=== PATIENT | male | born 1945 | race Caucasian/White ===

== ENCOUNTER 2020-02-05 13:24 | Emergency (ER) | payer OTHER, MEDICARE ==
--- OUTSIDE RECORDS SUMMARY | 2020-02-05 13:25 | XMS REPORT | Continuity of Care Document ---
:1945 Author Organization [facility] t Address [address] [place] [address] Care Team Providers Name Role Phone JULIO C Attending Clinician Unavailable JULIO C Admitting Clinician Unavailable Payers Payer Name Policy Type Policy Number Effective Date Expiration Date S ource Problems This patient has no known problems. Allergies, Adverse Reactions, Alerts Allergy Allergy Status Severity Reaction(s) Onset Inactive Treating Comm ents Source Name Type Date Date Clinician No Known DA Active [facility] 02-05 [place] [facility] No Known DA Active [facility] 12-20 [place] [facility] Medications This patient has no known medications. Procedures This patient has no known procedures. Encounters Start End Encounter Admission Attending Care Care Encounter Source Date/Time Date/Time Type Type Clinicians Facility Department ID 2019-03-23 2019-07-02 Outpatient Crissy BUNCH [facility] 1000 [id number] [place] 15:24:00 23:59:00 [facility] 2017-01-09 2017-04-13 Outpatient Crissy BUNCH [facility] [id number] [place] 13:22:00 23:59:00 AISHA [facility] Results This patient has no known results.
[2020-02-05 14:02] LABS: Absolute Lymphocytes (CBC) 0.5 K/uL (0.7-4.9); Basophils % 0.4 % (0-1.3); Hematocrit 42.7 % (39.6-49.0); Lymphocytes % 4.6 % (15.3-44.8); MPV 8.2 fL (7.6-11.3); RBC Red Blood Cell Count 4.51 M/uL (4.33-5.43)
--- NOTE | 2020-02-05 14:11 | RAD REPORT ---
EXAM DESCRIPTION: CT - Stone Protocol - 02/05/2020 1:57 pm CLINICAL HISTORY: Abdominal pain. Right flank pain COMPARISON: None. TECHNIQUE: Computed axial tomography of the abdomen pelvis was obtained without oral or IV contrast. Lack of IV and oral contrast limits evaluation of solid organs, bowel, and vessels. Coronal reformat nelson images were obtained and reviewed. All CT scans are performed using dose optimization technique as appropriate and may include automated exposure control or mA/KV adjustment according to patient size. FINDINGS: Several small right renal calculi. Mild to moderate right hydronephrosis with perirenal st randing. Right ureter is dilated. 4 millimeter calculus distal right ureter Hounsfield unit 960 Left renal calculus is not present. No hydronephrosis. 3 centimeter right renal cyst. Smaller left re nal cyst. Gastric distention. The liver, spleen, pancreas and adrenals appear grossly normal There is no evidence of diverticulitis. The appendix appears normal Small to moderate bilateral inguinal hernias contain fat IMPRESSION: A 4 millimeter calculus distal right ureter with [id number] right hydronephrosis Gastric distention
[2020-02-05] MEDS ORDERED: ONDANSETRON 4 MG/2 ML VIAL ONE (14:14)
[2020-02-05 14:16] LABS: Potassium 3.9 mmol/L (3.5-5.1)
[2020-02-05 14:32] LABS: Blood Morphology Comment NOT SEEN (NOT SEEN); Platelet Estimate ADEQ; Urine White Blood Cell Casts OK
--- NOTE | 2020-02-05 14:41 | ER ---
Nurse's Notes [facility] Name: Arvind Jean Age: 74 yrs Sex: Male : 1945 Arrival Date: 02/05/2020 Time: 13:25 Bed 23 Private MD: Jennifer Bain A Diagnosis: 4 mm right mid ureter kidney stone with mild right hyroureter and hydronephrosis Presentation: 02/04 13:30 Chief complaint: Patient states: R flank pain and nausea that began at 0600 this morning. Pt has a hx of kidney stones and believes this may be another. Coronavirus screen: Patient denies a cough. Patient denies shortness of breath or difficulty breathing. Patient denies measured and/or subjective temperature greater than 100.4F prior to today's visit. Patient denies travel on a cruise ship or to a country the [facility] currently lists as an affected area. Patient denies contact with known and/or suspected case of COVID-19. Ebola Screen: Patient denies exposure to infectious person. Patient denies travel to an Ebola-affected area in the 21 days before illness onset. Initial Sepsis Screen: Does the patient meet any 2 criteria? No. Patient's initial sepsis screen is negative. Does the patient have a suspected source of infection? No. Patient's initial sepsis screen is negative. Risk Assessment: Do you want to hurt yourself or someone else? Patient reports no desire to harm self or others. Onset of symptoms was February 05, 2020. 13:30 Method Of Arrival: Ambulatory ss 13:30 Acuity: LANA 3 Triage Assessment: 15:09 General: Appears in no apparent distress. comfortable, Behavior is calm, cooperative. ls4 Pain: Complains of pain in right low back. GI: No deficits noted. No signs and/or symptoms were reported involving the gastrointestinal system. : Reports pain in right flank(s). Derm: No deficits noted. No signs and/or symptoms reported regarding the dermatologic system. Historical: - Allergies: 13:33 No Known Allergies; ss - Immunization history:: Adult Immunizations up to date. - Social history:: Smoking status: Patient denies any tobacco usage or history of. Assessment: 13:57 Reassessment: Pt to CT now. Vital Signs: 13:30 BP 147 / 84; Pulse 64; Resp 16; Temp 98.0(TE); Pulse Ox 97% on R/A; Weight 88.9 kg; ss Height 5 ft. 8 in. (172.72 cm); Pain 6/10; 15:10 BP 138 / 74; Pulse 62; Resp 16; Temp 98.0; Pulse Ox 98% on R/A; Pain 5/10; ls4 13:30 Body Mass Index 29.80 (88.90 kg, 172.72 cm) ss ED Course: 13:25 Patient arrived in ED. as 13:25 Jennifer Bain MD is Private Physician. as 13:32 Triage completed. ss 13:33 Arm band placed on right wrist. ss 13:50 Emeka Falcon MD is Attending Physician. kdr 13:50 Suzy Gao, RN is Primary Nurse. ls4 13:56 Inserted saline lock: 20 gauge in right antecubital area, using aseptic technique. ss Blood collected. 13:58 CT Stone Protocol In Process Unspecified. EDMS 14:36 Jennifer Bain MD is Referral Physician. kdr Administered Medications: 14:09 Drug: Zofran (Ondansetron) 4 mg Route: IVP; Site: right antecubital; ls4 Outcome: 14:40 Discharge ordered by . kdr 15:10 Discharged to home ambulatory. ls4 15:10 Condition: good 15:10 Discharge instructions given to patient, family, Instructed on discharge instructions, follow up and referral plans. medication usage, Demonstrated understanding of instructions, follow-up care, medications, Prescriptions given X 4. 15:32 Patient left the ED. ls4 Signatures: Dispatcher [employer] EDMS Emeka Falcon MD MD kdr Soledad Victor Shelby RN RN Suzy Gao RN RN ls4
--- NOTE | 2020-02-05 14:41 | EDPHYS ---
Physician Documentation [facility] Name: Arvind Jean Age: 74 yrs Sex: Male : 1945 Arrival Date: 02/05/2020 Time: 13:25 Bed 23 Private MD: Jennifer Bain, A ED Physician Emeka Falcon HPI: 02/04 15:40 This 74 yrs old Male presents to ER via Ambulatory with complaints of kdr Possible Kidney Stone. 15:40 The patient complains of pain in the right low back. The pain does not radiate. Onset: kdr The symptoms/episode began/occurred this morning. Modifying factors: The symptoms are alleviated by nothing. the symptoms are aggravated by nothing. Associated signs and symptoms: Pertinent positives: nausea, vomiting, Pertinent negatives: dysuria, fever, headache, pain radiating to the lower extremities. Severity of pain: At its worst the pain was mild moderate just prior to arrival, in the emergency department the pain has improved mildly. The patient has experienced a previous episode. The patient has not recently seen a physician. Historical: - Allergies: 13:33 No Known Allergies; ss - Immunization history:: Adult Immunizations up to date. - Social history:: Smoking status: Patient denies any tobacco usage or history of. ROS: 15:40 Constitutional: Negative for fever, chills, and weight loss, Eyes: Negative for injury, kdr pain, redness, and discharge, Neck: Negative for injury, pain, and swelling, Cardiovascular: Negative for chest pain, palpitations, and edema, Respiratory: Negative for shortness of breath, cough, wheezing, and pleuritic chest pain, Abdomen/GI: Negative for abdominal pain, nausea, vomiting, diarrhea, and constipation, : Negative for injury, bleeding, discharge, and swelling, MS/Extremity: Negative for injury and deformity, Skin: Negative for injury, rash, and discoloration, Neuro: Negative for headache, weakness, numbness, tingling, and seizure activity. Psych: Negative for depression, anxiety, suicide ideation, homicidal ideation, and hallucinations, Allergy/Immunology: Negative for hives, rash, and allergies, Endocrine: Negative for neck swelling, polydipsia, polyuria, polyphagia, and marked weight changes, Hematologic/Lymphatic: Negative for swollen nodes, abnormal bleeding, and unusual bruising. 15:40 Back: Positive for pain at rest, flank pain, on the right. Exam: 15:40 Constitutional: This is a well developed, well nourished patient who is awake, alert, kdr and in no acute distress. Head/Face: Normocephalic, atraumatic. Eyes: Pupils equal round and reactive to light, extra-ocular motions intact. Lids and lashes normal. Conjunctiva and sclera are non-icteric and not injected. Cornea within normal limits. Periorbital areas with no swelling, redness, or edema. Neck: Trachea midline, no thyromegaly or masses palpated, and no cervical lymphadenopathy. Supple, full range of motion without nuchal rigidity, or vertebral point tenderness. No Meningismus. Chest/axilla: Normal chest wall appearance and motion. Nontender with no deformity. No lesions are appreciated. Cardiovascular: Regular rate and rhythm with a normal S1 and S2. No gallops, murmurs, or rubs. Normal PMI, no JVD. No pulse deficits. Respiratory: Lungs have equal breath sounds bilaterally, clear to auscultation and percussion. No rales, rhonchi or wheezes noted. No increased work of breathing, no retractions or nasal flaring. Abdomen/GI: Soft, non-tender, with normal bowel sounds. No distension or tympany. No guarding or rebound. No evidence of tenderness throughout. Skin: Warm, dry with normal turgor. Normal color with no rashes, no lesions, and no evidence of cellulitis. MS/ Extremity: Pulses equal, no cyanosis. Neurovascular intact. Full, normal range of motion. Neuro: Awake and alert, GCS 15, oriented to person, place, time, and situation. Cranial nerves II-XII grossly intact. Motor strength 5/5 in all extremities. Sensory grossly intact. Cerebellar exam normal. Normal gait. Psych: Awake, alert, with orientation to person, place and time. Behavior, mood, and affect are within normal limits. 15:40 Back: pain, that is mild, of the right mid back. Vital Signs: 13:30 BP 147 / 84; Pulse 64; Resp 16; Temp 98.0(TE); Pulse Ox 97% on R/A; Weight 88.9 kg; ss Height 5 ft. 8 in. (172.72 cm); Pain 6/10; 15:10 BP 138 / 74; Pulse 62; Resp 16; Temp 98.0; Pulse Ox 98% on R/A; Pain 5/10; ls4 13:30 Body Mass Index 29.80 (88.90 kg, 172.72 cm) ss MDM: 14:40 Patient medically screened. kdr 15:40 Data reviewed: vital signs, nurses notes, lab test result(s), radiologic studies. kdr Counseling: I had a detailed discussion with the patient and/or guardian regarding: the historical points, exam findings, and any diagnostic results supporting the discharge/admit diagnosis, lab results, radiology results, the need for outpatient follow up. 02/04 13:45 Order name: CBC with Diff; Complete Time: 14:35 hb 02/04 13:45 Order name: Basic Metabolic Panel; Complete Time: 14:35 hb 02/04 13:45 Order name: CT Stone Protocol; Complete Time: 14:35 hb 02/04 13:45 Order name: Urine Dipstick-Ancillary (obtain specimen); Complete Time: 13:56 hb 02/04 14:27 Order name: CBC Smear Scan; Complete Time: 14:35 EDMS Administered Medications: 14:09 Drug: Zofran (Ondansetron) 4 mg Route: IVP; Site: right antecubital; ls4 Disposition: 02/05/20 14:40 Discharged to Home. Impression: 4 mm right mid ureter kidney stone with mild right hyroureter and hydronephrosis. - Condition is Stable. - Discharge Instructions: Kidney Stones, [id number]. - Prescriptions for Tylenol- Codeine #3 300-30 mg Oral Tablet - take 2 tablets by ORAL route every 6 hours As needed; 12 tablet. Zofran 4 mg Oral Tablet - take 1 tablet by ORAL route every 12 hours As needed; 20 tablet. Flomax 0.4 mg Oral Capsule, Sust. Release 24 hr - take 1 capsule by ORAL route once daily 1/2 hour following the same meal each day; 10 capsule. Bactrim DS 800- 160 mg Oral Tablet - take 1 tablet by ORAL route every 12 hours for 3 days; 6 tablet. - Medication Reconciliation Form, Thank You Letter, Antibiotic Education, Prescription Opioid Use form. - Follow up: Jennifer Bain MD; When: 2 - 3 days; Reason: If symptoms return, Further diagnostic work-up, Recheck today's complaints, Continuance of care, Re-evaluation by your physician. - Problem is new. - Symptoms have improved. Signatures: Dispatcher [employer] Emeka Turner MD MD kdr Leah Barba RN RN ss Mahogany Caraballo RN RN Suzy Gao RN RN ls4 Corrections: (The following items were deleted from the chart) 15:32 14:40 02/05/2020 14:40 Discharged to Home. Impression: 4 mm right mid ureter kidney ls4 stone with mild right hyroureter and hydronephrosis. Condition is Stable. Forms are Medication Reconciliation Form, Thank You Letter, Antibiotic Education, Prescription Opioid Use. Follow up: Jennifer Bain; When: 2 - 3 days; Reason: If symptoms return, Further diagnostic work-up, Recheck today's complaints, Continuance of care, Re-evaluation by your physician. Problem is new. Symptoms have improved. kdr
[2020-02-05 15:37] VITALS: TEMP 98
[2020-02-05 15:39] VITALS: BP 138/74; O2SAT 98
== END 2020-02-05 15:32 | disposition home or self-care (01) ==
LOC: ER 13:24
DX: N13.2 Hydronephrosis with renal and ureteral calculous obstruction (principal); N13.4 Hydroureter
CPT/HCPCS: 85025; 80048; 36415; 76377; 74176; 96374; 99284; J2405

== ENCOUNTER 2021-11-29 07:07 | Day surgery (SDC) | payer OTHER, MEDICARE ==
--- NOTE | 2021-11-27 10:42 | RAD REPORT ---
EXAM DESCRIPTION: Yvette Pineda (2 Views)11/27/2021 10:35 am CLINICAL HISTORY: Preop for hernia repair COMPARISON: None FINDINGS: The lungs appear clear of acute infiltrate. The heart is normal size IMPRESSION: No acute abnormalities displayed
[2021-11-27 11:00] LABS: Absolute Lymphocytes (CBC) 1.1 K/uL (0.7-4.9); Hematocrit 40.4 % (39.6-49.0); Lymphocytes % 16.7 % (15.3-44.8); MPV 7.7 fL (7.6-11.3); RBC Red Blood Cell Count 4.31 M/uL (4.33-5.43)
[2021-11-27 11:16] LABS: Potassium 3.9 mmol/L (3.5-5.1)
--- NOTE | 2021-11-27 13:44 | EKG ---
Test Date: 2021-11-27 Test Time: 09:11:13 Public Address System Operator: MINA MEASUREMENT RESULTS: Intervals: Rate: 67 CT: 178 QRSD: 88 QT: 400 QTc: 422 Hendricks: P: 45 CT: 178 QRS: 44 T: 39 INTERPRETIVE STATEMENTS: Normal sinus rhythm Nonspecific ST abnormality Abnormal ECG Compared to ECG 01/11/2009 15:24:14 ST (T wave) deviation now present Sinus bradycardia no longer present Electronically Signed On 11-27-21 13:44:06 CDT by Carlos Sellers
[2021-11-29] MEDS ORDERED: NA CHLORIDE 0.9% 0 ML ONE (07:15)
[2021-11-29] MEDS ORDERED: Ringers Lactate 1,000 ML IV ONE ×2 (07:15→10:12)
[2021-11-29] MEDS ORDERED: FENTANYL CITR 100 MCG/2 ML ONE (08:08)
[2021-11-29] MEDS ORDERED: MIDAZOLAM HCL 2 MG/2 ML INJ ONE (08:08)
[2021-11-29] MEDS ORDERED: LIDOCAINE 2% MPF 5 ML VIAL ONE (08:08)
[2021-11-29] MEDS ORDERED: propofoL 200 MG/20 ML VIAL IV ONE (08:08)
[2021-11-29] MEDS ORDERED: ONDANSETRON 4 MG/2 ML VIAL ONE ×2 (08:13→09:38)
[2021-11-29] MEDS ORDERED: ACETAMINOPHEN 500 MG TAB ONE (08:29)
[2021-11-29] MEDS ORDERED: CELECOXIB 100 MG CAPSULE ONE (08:30)
[2021-11-29] MEDS ORDERED: ROCURONIUM 50 MG/5 ML VIAL IV ONE (09:09)
[2021-11-29] MEDS: CEFAZOLIN SODIUM 1 GM/VIAL ONE ×2 (09:10→09:20)
[2021-11-29] MEDS ORDERED: GLYCOPYRROLATE 0.2 MG/ML SYR ONE ×2 (09:10→09:13)
[2021-11-29] MEDS ORDERED: NEOSTIGMINE 1 MG/ML -10 ML VIAL ONE (09:11)
[2021-11-29] MEDS ORDERED: KETOROLAC 30 MG/ML INJ ONE ×2 (09:37→09:38)
[2021-11-29] MEDS ORDERED: Phenylephrine HCl 10 MG/ML 1 ML VIAL ONE (09:43)
[2021-11-29] MEDS ORDERED: EPHEDRINE SULF 50 MG/ML VIAL ONE (10:01)
[2021-11-29] MEDS ORDERED: dexAMETHasone 10 MG/ML VIAL ONE (10:25)
--- NOTE | 2021-11-29 10:42 | P.BOP ---
Preoperative diagnosis: bilateral tender large reducible inguinal hernias Postoperative diagnosis: same Primary procedure: 1. Open repair tender large reducible Right inguinal hernia with mesh Secondary procedure: 2. Open repair tender large reducible Left inguinal hernia with mesh Trolley Coach Driver: NOEL BANGURA (STORE LEAD) Estimated blood loss: <10cc Specimen: none Findings: large direct hernias Anesthesia: General Complications: None Transferred to: Recovery Room Condition: Good
[2021-11-29 14:02] VITALS: BP 136/72; TEMP 96.3; O2SAT 96
--- NOTE | 2021-11-30 | DS ---
Date of Discharge: 11/29/2021 Diagnosis: Bilateral tender, large, reducible inguinal hernias. Procedure: Open repair of right and left inguinal hernias with mesh. Disposition: Home. Activity: As tolerated. No heavy lifting. Discharge Instructions: Follow up in my office, call for appointment at [phone]. Keep area dry for 48 hours, then may shower. Cold compress to bilateral inguinal regions for 24 hours. The patient a lready had prescription called. He has occasional retention of urine, so we are going to recommend h im Flomax at least perioperative and then follow up his urologist. JESSICA/SUZANNE Voice ID: [id number] Report ID: [id number]
--- NOTE | 2021-11-30 00:18 | OP ---
Date of Procedure: 11/29/2021 Surgeon: Babar Victor MD Roof Service Technician: Shaunna Witt Preoperative Diagnosis: Bilateral tender, large, reducible inguinal hernias. Postoperative Diagnosis: Bilateral tender, large, reducible inguinal hernias. Procedures: 1.Open repair of tender, large, reducible right inguinal hernia with mesh. 2.Open repair of tender, large, reducible left inguinal hernia with mesh. Estimated Blood Loss: Less than 10 mL. Specimen: None. Findings: Two large direct hernias. Anesthesia: General plus local. Indications: This is a case of a male who comes to us with 2 large hernias in inguinal region, justin g him pain and discomfort. He wants them repaired. The patient was explained the benefits, alternati ves, and risks of open repair of right and left inguinal hernias with mesh which included, but not li mited to, infection, bleeding, damage to adjacent structures, anesthesia complication, recurrence, ch ronic pain, chronic numbness, PR, and even . He also understands this may not relieve any sympt oms. He might need more than one surgical intervention. He also understands we most likely will be using mesh in that area. Pros and cons of mesh placement were discussed with the patient. All the q uestions were answered to his satisfaction, and he did allow use of mesh. He has elected [facility] as surgery center of choice. Procedure In Detail: The patient was brought to the operating room, placed in supine position. Anes thesia was done without complication. Inguinal and abdomen were prepped and draped in sterile fashio n. We started with the left side first, which is apparently the biggest of the two, today. An incis ion was made on the inguinal regions, carried down to Dipti fascia until we found external oblique a poneurosis, that was opened in direction of the fiber and connected to the superficial inguinal ring. The ilioinguinal nerve and iliohypogastric nerve were identified and protected behind external obli que aponeurosis. Yue was placed around the spermatic cord and when we dissected that area, we no nelson that the patient had a large direct hernia. We have to reconstruct the floor of the canal. The way we did that was just putting #1 Prolene in the pubic tubercle, shelving edge of inguinal ligament , and transversalis fascia around that making sure the nerves were not included. Once repaired the f clover of the canal, we put a mesh plug in the deep inguinal ring, secured that with a VersaTack. Once again, the spermatic cord structures were protected and identified at all times. After that, I plac ed a mesh sheet on the floor of the canal, securing that to the pubic tubercle, shelving edge of ingu inal ligament, transversalis fascia, and the tails looped around the spermatic cord without strangula tion. The area was irrigated. No bleeding. At that moment, I proceeded to bring the ilioinguinal n erve and iliohypogastric nerve back into the inguinal canal, reconstructed the superficial inguinal r ing and closed the external oblique aponeurosis with Prolene stitches. The area was irrigated. Once again, nerves were protected and placed into proper place during the case. The Dipti fascia was cl osed with 3-0 chromic and skin with armani. Sponge count and instrument counts were correct. The p atient tolerated procedure well. At that moment, we went then to have instrument count correct and t hen we went to the opposite side, the right side. The incision was made in the inguinal and skin inc ision was carried down to Dipti fascia, opened the external oblique aponeurosis in the direction of the fibers to connect the superficial inguinal ring. At that moment, I proceeded to identify the ner ve, ilioinguinal and iliohypogastric, protected to be kept behind external oblique aponeurosis. Penr ose was placed around the spermatic cord. We had a mirror-image hernia of the opposite side, it is a direct hernia and will have to reconstruct the floor of the canal. We did that by using #1 Prolene, securing that to the pubic tubercle, shelving edge of inguinal ligament, transversalis fascia around that until we had the floor reconstructed. We made sure the nerves were protected. A mesh plug was placed in the deep inguinal ring, secured in place with VersaTack. The spermatic cord structures we re protected at all times, identified, . We placed a mesh sheet on the floor of the canal, securing that to the pubic tubercle, shelving edge of inguinal ligament, transversalis fascia and th e tails looped around the spermatic cord without strangulation as we did in the opposite side. The i lioinguinal nerve and iliohypogastric nerve were identified once again, put inside the canal like we did on the opposite side, and then reconstructed the superficial inguinal ring and closed the externa l oblique aponeurosis as we did on the other side with the nerve already in the canal and making sure we do not catch them. The area was irrigated. Dipti fascia was closed with 3-0 chromic and the sk in closed with armani. Sponge count and instrument counts were correct. The patient tolerated proc edure well. The patient was sent to recovery in stable condition. JESSICA/SUZANNE Voice ID: [id number] Report ID: [id number]
== END 2021-11-29 12:58 | disposition home or self-care (01) ==
LOC: OR 07:07
PROVIDERS: ATTEND Surgery
PROC: 0YUA0JZ Supplement Bilateral Inguinal Region with Synthetic Substitute, Open Approach (ICD-10-PCS; principal; 2021-11-29 09:15)
DX: K40.20 Bilateral inguinal hernia, without obstruction or gangrene, not specified as recurrent (principal); Z20.822 Contact with and (suspected) exposure to COVID-19; I10 Essential (primary) hypertension
CPT/HCPCS: 93005; 85025; 80048; 36415; 71046; 49505; U0003; J2704; J2710; J2250; J3010; J1100; J7120; J2405 ×2; J0690; J2370